=== PATIENT | male | born 1960 | race Hispanic/Latino ===

== ENCOUNTER 2018-08-04 12:56 | Day surgery (SDC) | payer MEDICARE ==
[2018-08-04 13:51] LABS: Basophils % (Auto) 0.4 % (0.0-1.8); Eosinophils # (Auto) 0.4 K/mm3 (0.0-0.4); Eosinophils % (Auto) 3.6 % (0.0-4.3); Hematocrit 37.9 % (35.5-45.6); Lymphocytes # (Auto) 2.4 K/mm3 (1.2-5.4); Lymphocytes % (Auto) 23.3 % (13.4-35.0); Mean Corpuscular HGB Conc 34 % (32-34); Mean Corpuscular Volume 95 fl (84-94); Monocytes # (Auto) 0.8 K/mm3 (0.0-0.8); Platelet Count 240 K/mm3 (140-440); Red Blood Count 3.98 M/mm3 (3.65-5.03)
[2018-08-04 14:02] LABS: INR 1.02 (0.87-1.13)
[2018-08-04 14:03] LABS: Partial Thromboplastin Time 31.9 Sec. (24.2-36.6)
[2018-08-04] MEDS ORDERED: NACL 0.9% 500 ML 500 ML ONE (14:07)
[2018-08-04] MEDS ORDERED: HEPARIN/NS 5000 UNIT/500ML(CATH LAB) 1,000 ML IR ONE (14:07)
[2018-08-04] MEDS ORDERED: HEPARIN 10,000 UNITS/10 ML ONE (14:07)
[2018-08-04] MEDS ORDERED: XYLOCAINE 2% INFILTRATI ONE (14:07)
--- NOTE | 2018-08-04 14:21 | Anesthesia Consultation ---
Anesthesia Consult and Med Hx Date of service: 08/04/18 - Airway Anesthetic Teeth Evaluation: Good ROM Head & Neck: Adequate Mental/Hyoid Distance: Adequate Mallampati Class: Class II Intubation Access Assessment: Probably Good - Pulmonary Exam CTA: Yes - Cardiac Exam Anesthetic Concerns: RRR 3/6 holosystolic murmur. - Pre-Operative Health Status ASA Pre-Surgery Classification: ASA4 Proposed Anesthetic Plan: MAC - Pulmonary Hx Smoking: Yes (as a teenager) Hx Sleep Apnea: No - Cardiovascular System Hx Hypertension: Yes Hx Heart Murmur: Yes (Patient was unaware of his heart murmur) - Gastrointestinal Hx Gastroesophageal Reflux Disease: Yes (mild) - Endocrine Hx Renal Disease: Yes Hx End Stage Renal Disease: Yes (LUE AV fistula) - Hematic Hx Anemia: Yes - Other Systems Hx Alcohol Use: Yes (occasional beer) Hx Obesity: Yes (morbid obesity, BMI 53) - Additional Comments Anesthesia Medical History Comments: Patient has had multiple bilateral eye surgeries , mostly for glaucoma. He is legally blind.
[2018-08-04] MEDS ORDERED: VERSED ONE (14:45)
[2018-08-04 14:46] LABS: Calcium 9.1 mg/dL (8.4-10.2)
[2018-08-04] MEDS ORDERED: DIPRIVAN 10 MG/ML IV ONE ×2 (14:46)
[2018-08-04] MEDS ORDERED: XYLOCAINE MPF 2% ONE (14:46)
[2018-08-04] MEDS ORDERED: NACL 0.9% 1000 ML 1,000 ML IV SCH (15:00)
[2018-08-04] MEDS ORDERED: PEPCID IV NR (15:00)
--- NOTE | 2018-08-04 15:37 | Anesthesia Day of Surgery ---
Anesthesia Day of Surgery - Day of Surgery Patient Examined: Yes Patient H&P Reviewed: Yes Patient is NPO: Yes
--- NOTE | 2018-08-04 15:40 | Short Stay Summary ---
Short Stay Documentation Date of service: 08/04/18 - History Principal diagnosis: Malfunctioning dialysis access H&P: obtained from office - Allergies and Medications Current Medications: Allergies Sulfa (Sulfonamide Antibiotics) Allergy (Verified 09/04/15 11:54) Rash acetazolamide [From Diamox Sequels] Adverse Reaction (Verified 05/16/15 12:43) Diarrhea PAPER TAPE Adverse Reaction (Mild, Uncoded 09/15/15 06:50) SKIN BUBBLES UP Home Medications Medication Instructions Recorded Confirmed Last Taken Type Allopurinol [Zyloprim] 100 mg PO QDAY 05/16/15 08/04/18 08/03/18 History 100mg Brimonidine Tartrate [Alphagan P 1 drop OU Q8HR 05/16/15 08/04/18 08/03/18 History 0.1%] 1 Dorzolamide/Timolol/Pf [Cosopt Pf 1 each OS BID 05/16/15 08/04/18 08/03/18 History Eye Drops] 1 Zolpidem [Ambien] 10 mg PO QHS 05/16/15 08/04/18 08/03/18 History 10mg amLODIPine [Norvasc] 10 mg PO DAILY 05/16/15 08/04/18 08/03/18 History 10mg prednisoLONE ACETATE 1% [Pred 1 ml OP DAILY 05/16/15 08/04/18 08/03/18 History Forte] 1 Vit B Comp C/Folic Acid/Vit D3 1 each PO DAILY 09/15/15 08/04/18 08/03/18 History [Dialyvite 800 Plus D Wafer] 1 Cefuroxime Axetil 250 mg PO DAILY 08/04/18 08/04/18 08/03/18 History 250mg Losartan [Cozaar] 50 mg PO DAILY 08/04/18 08/04/18 08/03/18 History 50mg Ondansetron [Zofran TAB] 4 mg PO DAILY PRN 08/04/18 08/04/18 08/03/18 History 4mg Sevelamer Carbonate [Renvela] 800 mg PO TID 08/04/18 08/04/18 08/03/18 History 800mg Sucralfate [Carafate] 1 tab PO DAILY 08/04/18 08/04/18 08/03/18 History 1 Active Medications Famotidine (Pepcid) 20 mg IV PREOP NR Stop: 08/04/18 23:59 Last Admin: 08/04/18 14:54 Dose: 20 mg Documented by: Sodium Chloride (Nacl 0.9% 1000 Ml) 1,000 mls @ 42 mls/hr IV DIRECT FEROZ - Brief post op/procedure progress note Date of procedure: 08/04/18 Pre-op diagnosis: Malfunctioning dialysis fistula Post-op diagnosis: same Procedure: LUE fistulagram Anesthesia: local Surgeon: KEITH RAMIREZ Estimated blood loss: minimal Pathology: none Condition: stable - Disposition Condition at discharge: Good Disposition: DC-01 TO HOME OR SELFCARE Short Stay Discharge Plan Activity: advance as tolerated Weight Bearing Status: Weight Bear as Tolerated Diet: renal Wound: keep clean and dry, per your surgeon's advice Follow up with: LEE ANN METZ MD [Other] - 7 Days
--- NOTE | 2018-08-04 15:43 | Operative Report ---
Operative Report Operative Report: Exam: Left upper extremity fistulogram Clinical indication: Patient with a history of malfunctioning left upper extremity fistula Date: 08/04/2018 Procedure: Following an explanation of the risks, benefits and alternatives; written informed consent was obtained. The patient was brought to the angiographic suite placed in supine position on the examination table. Initial evaluation of fistula beginning in the mid forearm demonstrates a palpable thrill with some pulsatility towards the superior aspect of the fistula. The patient's left upper arm was prepped and draped in the usual sterile fashion. 1% lidocaine was used for anesthesia. The fistula was cannulated towards the venous outflow using a 7 cm 21-gauge needle. A 0.018 guidewire was advanced centrally. The needle was removed and a micro-sheath place. The 0.018 guidewire was exchanged for 0.035 guidewire and the microtia and exchange for a 7 Yi vascular sheath. Contrast was then injected through the sheath. This demonstrates a dilation of the fistula throughout its course. There is tortuosity and elongation of the fistula as well. At the level of the humeral head, there is development of a 360 turn in the fistula causing a pseudo-stenosis. The cephalic arch and central veins are widely patent. At this point, the sheath was removed and hemostasis achieved using 4-0 Vicryl suture and manual compression. A sterile dressing was applied. The patient tolerated the procedure well. There were no immediate post proce dure complications. Sedation was administered by anesthesia services. Continuous cardiopulmonary monitoring was utilized. Impression: Left upper extremity fistulogram illustrating the development of a 360 turn in the fistula at the level of the humeral head causing a pseudo- stenosis. Overall, the fistula is widely patent with scattered areas of pseudoaneurysm formation and elongation. Depending on the patient's progressing of clinical symptoms, the patient may ultimately require revision of the fistula.
[2018-08-04 16:24] VITALS: BP 139/84
== END 2018-08-04 16:35 | disposition home or self-care (01) ==
LOC: CATHLABREC 12:56
PROVIDERS: ATTEND Radiology Diagnostic Radiology
DX: T82.898A Other specified complication of vascular prosthetic devices, implants and grafts, initial encounter (principal); I12.0 Hypertensive chronic kidney disease with stage 5 chronic kidney disease or end stage renal disease; N18.6 End stage renal disease; K21.9 Gastro-esophageal reflux disease without esophagitis; H40.9 Unspecified glaucoma; E66.9 Obesity, unspecified; Z68.42 Body mass index [BMI] 45.0-49.9, adult; Z72.89 Other problems related to lifestyle; Z98.890 Other specified postprocedural states; Z88.2 Allergy status to sulfonamides; Z88.8 Allergy status to other drugs, medicaments and biological substances; Z79.899 Other long term (current) drug therapy; Z98.41 Cataract extraction status, right eye; Z86.2 Personal history of diseases of the blood and blood-forming organs and certain disorders involving the immune mechanism; Z98.42 Cataract extraction status, left eye; Y83.8 Other surgical procedures as the cause of abnormal reaction of the patient, or of later complication, without mention of misadventure at the time of the procedure; Y92.89 Other specified places as the place of occurrence of the external cause
CPT/HCPCS: 36415; 36901; 80048; 85025; 85610; 85730; C1769; C1894; J1644; J2250; J2704; J7030; J7040; Q9967

== ENCOUNTER 2019-05-06 07:34 | Day surgery (SDC) | payer MEDICARE ==
[2019-05-06] MEDS ORDERED: SODIUM CHLORIDE 0.9% 500 ML 500 ML IV SCH (08:00)
[2019-05-06 08:35] LABS: Hematocrit 37.2 % (35.5-45.6); Hemoglobin 12.3 gm/dl (11.8-15.2); Mean Corpuscular HGB Conc 33 % (32-34); Mean Corpuscular Volume 97 fl (84-94); Platelet Count 149 K/mm3 (140-440); Red Blood Count 3.85 M/mm3 (3.65-5.03); Red Cell Distribution Width 14.9 % (13.2-15.2)
[2019-05-06 08:50] LABS: INR 1.07 (0.87-1.13)
[2019-05-06 08:54] LABS: Calcium 9.5 mg/dL (8.4-10.2)
--- NOTE | 2019-05-06 09:35 | Anesthesia Consultation ---
Anesthesia Consult and Med Hx Date of service: 05/06/19 - Airway Anesthetic Teeth Evaluation: Crowns ROM Head & Neck: Adequate Mental/Hyoid Distance: Inadequate Mallampati Class: Class III Intubation Access Assessment: Possibly Difficult - Pulmonary Exam CTA: Yes - Cardiac Exam Cardiac Exam: RRR - Pre-Operative Health Status ASA Pre-Surgery Classification: ASA3 Proposed Anesthetic Plan: MAC - Pulmonary Hx Smoking: Yes (as a teenager) Hx Asthma: No Hx Sleep Apnea: No - Cardiovascular System Hx Hypertension: Yes Hx Heart Attack/AMI: No Hx Angina: No Hx Percutaneous Transluminal Coronary Angioplasty (PTCA): No Hx Cardia Arrhythmia: No Hx Heart Murmur: Yes (Patient was unaware of his heart murmur) - Central Nervous System Hx Neuromuscular Disorder: (legally blind, glaucoma) Hx Seizures: No CVA: No Hx Psychiatric Problems: No - Gastrointestinal Hx Gastroesophageal Reflux Disease: Yes (mild) - Endocrine Hx Renal Disease: Yes Hx End Stage Renal Disease: Yes (LUE AV fistula) Hx Cirrhosis: No Hx Liver Disease: No Hx Insulin Dependent Diabetes: No Hx Non-Insulin Dependent Diabetes: No - Hematic Hx Anemia: Yes - Other Systems Hx Alcohol Use: Yes (occasional beer) Hx Cancer: No Hx Obesity: Yes (morbid obesity, BMI 53) - Additional Comments Anesthesia Medical History Comments: Patient previous anesthesia related complic ations. He's legally blind.
--- NOTE | 2019-05-06 09:36 | Anesthesia Day of Surgery ---
Anesthesia Day of Surgery - Day of Surgery Patient Examined: Yes Patient H&P Reviewed: Yes Patient is NPO: Yes
[2019-05-06] MEDS ORDERED: LIDOCAINE MPF (2%) 20 MG/1 ML VIAL 5 ML ONE (10:13)
[2019-05-06] MEDS ORDERED: KETAMINE/STERILE WATER 50 MG/ML SYRINGE ONE (10:14)
[2019-05-06] MEDS ORDERED: propofoL 200 MG/20 ML VIAL IV ONE (10:14)
[2019-05-06] MEDS ORDERED: fentaNYL 100 MCG/2 ML INJ ONE ×2 (10:14→10:26)
[2019-05-06] MEDS ORDERED: HEPARIN 10,000 UNITS/10 ML VIAL ONE (10:26)
[2019-05-06] MEDS ORDERED: MIDAZOLAM 2 MG/2 ML INJ ONE (10:26)
[2019-05-06] MEDS ORDERED: HEPARIN/NS 5000 UNIT/500ML 1,000 ML IR ONE (10:26)
[2019-05-06] MEDS: LIDOCAINE 1%/EPINEPHRINE 1:100,000 VIAL (20 ML) INFILTRATI ONE ×2 (10:56→11:01)
[2019-05-06 11:06] LABS: Total Cells Counted 100
[2019-05-06 11:07] LABS: Basophils % (Manual) 0 % (0.0-1.8); Platelet Estimate Consistent w Auto
--- NOTE | 2019-05-06 11:37 | Short Stay Summary ---
Short Stay Documentation Date of service: 05/06/19 Narrative H&P: Malfunctioning AV fistula - History Principal diagnosis: Malfunctioning AV fistula H&P: obtained from office - Allergies and Medications Current Medications: Allergies Sulfa (Sulfonamide Antibiotics) Allergy (Verified 09/04/15 11:54) Rash acetazolamide [From Diamox Sequels] Adverse Reaction (Verified 05/16/15 12:43) Diarrhea PAPER TAPE Adverse Reaction (Mild, Uncoded 09/15/15 06:50) SKIN BUBBLES UP Home Medications Medication Instructions Recorded Confirmed Last Taken Type Brimonidine Tartrate [Alphagan P 1 drop OU Q8HR 05/16/15 05/06/19 05/05/19 History 0.1%] Dorzolamide/Timolol/Pf [Cosopt Pf 1 each OS BID 05/16/15 05/06/19 05/05/19 History Eye Drops] Zolpidem [Ambien] 10 mg PO QHS 05/16/15 05/06/19 05/05/19 History allopurinoL [Zyloprim] 100 mg PO QDAY 05/16/15 05/06/19 05/05/19 History prednisoLONE ACETATE 1% [Pred 1 ml OP DAILY 05/16/15 05/06/19 05/05/19 History Forte] Losartan [Cozaar] 50 mg PO DAILY 08/04/18 05/06/19 05/05/19 History Ondansetron [Zofran TAB] 4 mg PO DAILY PRN 08/04/18 05/06/19 05/05/19 History Sevelamer Carbonate [Renvela] 800 mg PO TID 08/04/18 05/06/19 05/05/19 History raNITIdine HCl [Zantac] 150 mg PO DAILY 05/06/19 05/06/19 05/05/19 History Active Medications Sodium Chloride (Nacl 0.9% 500 Ml) 500 mls @ 50 mls/hr IV DIRECT FEROZ Last Admin: 05/06/19 10:15 Dose: 50 mls/hr Documented by: - Brief post op/procedure progress note Date of procedure: 05/06/19 Pre-op diagnosis: Malfunctioning AV fistula Post-op diagnosis: same Procedure: Cephalic vein venoplasty, fistulogram Anesthesia: local Surgeon: KEITH RAMIREZ Estimated blood loss: minimal Pathology: none Condition: stable - Disposition Condition at discharge: Good Disposition: DC-01 TO HOME OR SELFCARE Short Stay Discharge Plan Activity: advance as tolerated Weight Bearing Status: Weight Bear as Tolerated Diet: regular Wound: keep clean and dry, per your surgeon's advice Follow up with: PRIMARY CARE, [Primary Care Provider] - 7 Days
--- NOTE | 2019-05-06 11:42 | Operative Report ---
Operative Report Operative Report: Exam: Left upper extremity fistulogram, venoplasty Clinical indication: Patient with a history of a left upper arm brachiocephalic AV fistula with increased venous pressures Date: 05/06/2019 Procedure: Following an explanation of the risks, benefits and alternatives; written informed consent was obtained. The patient was brought to the angiographic suite and placed in supine position on the examination table. Initial ultrasound evaluation of the fistula demonstrated dilated fistula with multiple areas of pseudoaneurysm formation throughout the fistula. There is tortuosity. The fistula is widely patent. Turbulent flow is present within some of the larger pseudoaneurysms. An appropriate access site was chosen just distal to the arterial anastomosis. 1% lidocaine was used for anesthesia. The fistula was cannulated towards the venous outflow using a 7 cm 21-gauge needle. A 0.018 guidewire was advanced centrally. The needle was removed and a micro-sheath placed. The 0.018 guidewire was exchanged for a 0.035 guidewire and the micro sheath exchanged for a 7 [place] vascular sheath. Contrast was injected through the sheath and imaging obtained at multiple locations. Given the massive size of the fistula, there is a washout of contrast in the upper arm and a vertebral catheter was advanced over the guidewire to the upper arm for additional imaging. There is tortuosity with a 360 degree turn of the cephalic vein with a stenosis just proximal to its joining the axillary vein. The central veins appear patent. The stenosis was crossed using a 0.035 guidewire and vertebral catheter. Together the vertebral catheter and guidewire were advanced to the IVC for anchoring. The vertebral catheter was removed. Angioplasty was performed using an 8 mm x 60 mm balloon insufflated to nominal atmospheres for 30 seconds to 1 minute at multiple locations. Post angioplasty imaging demonstrated reduction of the stenosis from 80 to 90% to 30 to 40%. At this point, the catheters, guidewires and sheath was removed. Hemostasis was achieved using manual compression and a 4-0 Vicryl suture. Dermabond was applied as well. The patient tolerated the procedure well. There were no immediate postprocedure complications. Conscious sedation was performed under the guidance of radiologic nursing. Continuous cardiopulmonary monitoring is utilized. Impression: 1) Left upper extremity fistulogram demonstrating pseudoaneurysmal dilatation at multiple locations as well as significant tortuosity with a 360 degree turn in the cephalic vein in the upper arm. Just proximal to the axillary vein, there is a 80% stenosis. 2) Venoplasty of the 80% stenosis with residual 30 to 40% stenosis. 3) The patient will be scheduled for follow-up and may require surgical revision of the fistula to remove the redundancy.
[2019-05-06 13:42] VITALS: BP 118/63
--- NOTE | 2019-05-06 15:34 | Post Anesthesia Evaluation ---
- Post Anesthesia Evaluation Patient Participated: Yes Airway Patent: Yes Stable Respiratory Function: Yes Nausea/Vomiting: No Temp > 96.8F: Yes Pain Manageable: Yes Adequeate Hydration: Yes Anesthesia Complications: No Block Receding Appropriately: Not Applicable Patient on Ventilator: No
== END 2019-05-06 13:15 | disposition home or self-care (01) ==
LOC: CATHLABREC 07:34
PROVIDERS: ATTEND Radiology Diagnostic Radiology
DX: I12.0 Hypertensive chronic kidney disease with stage 5 chronic kidney disease or end stage renal disease (principal); N18.6 End stage renal disease; K21.9 Gastro-esophageal reflux disease without esophagitis; E66.9 Obesity, unspecified; Z68.42 Body mass index [BMI] 45.0-49.9, adult; Z99.2 Dependence on renal dialysis; Z72.89 Other problems related to lifestyle; Z88.2 Allergy status to sulfonamides; Z79.899 Other long term (current) drug therapy; Z87.891 Personal history of nicotine dependence; Z98.41 Cataract extraction status, right eye; Z98.42 Cataract extraction status, left eye; Z98.890 Other specified postprocedural states; Z86.2 Personal history of diseases of the blood and blood-forming organs and certain disorders involving the immune mechanism; Z88.8 Allergy status to other drugs, medicaments and biological substances
CPT/HCPCS: 36415; 36902; 80048; 85007; 85025; 85610; 85730; 99156; 99157; C1725; C1894; J1644; J2704; J3010; J7040; J2250; Q9967